=== PATIENT | female | born 1990 | race African-American/Black ===

== ENCOUNTER 2018-02-26 00:52 | Emergency (ER) | payer OTHER ==
[2018-02-26] MEDS: HYDROCODONE/APAP (5/325) TAB PO (02:39)
== END 2018-02-26 04:06 | disposition home or self-care (01) ==
LOC: FTE 00:52
DX: S69.92XA Unspecified injury of left wrist, hand and finger(s), initial encounter (principal); S16.1XXA Strain of muscle, fascia and tendon at neck level, initial encounter; S29.012A Strain of muscle and tendon of back wall of thorax, initial encounter; V49.40XA Driver injured in collision with unspecified motor vehicles in traffic accident, initial encounter
CPT/HCPCS: 72040; 72072; 73130-LT; 81025; 99284-25